=== PATIENT | male | born 1980 | race Caucasian/White ===

== ENCOUNTER 2017-10-28 15:58 | Emergency (ER) | payer BC ==
[~2017-10-28] VITALS: Ht 175.3 cm; Wt 90.9 kg
[~2017-10-28 15:58] MED LIST: ASPIRIN 81M81 MG/TA2 PO; no home medications
[2017-10-28 17:00] VITALS: BP 137/78; PULSE 57; TEMP 98.3
[2017-10-28 17:23] LABS: BASO % 0.8 % (0.0-2.0); EOS # 0.1 (0.0-0.7); EOS % 2.7 % (0-4.0); GRAN % 56.2 % (42.2-75.2); HEMATOCRIT 41.3 % (42.0-52.0); HEMOGLOBIN 14.6 g/dl (13.5-18.0); LYMPH # 1.7 (1.2-3.4); LYMPH % 32.3 % (20.0-51.0); MEAN CELL VOLUME 91 fl (80.0-100.0); MEAN CORPUSCULAR HEMOGLOBIN 32 pg (27.0-31.0); MEAN CORPUSCULAR HGB CONC 35 g/dl (33.0-37.0); MEAN PLATELET VOLUME 9.8 fl (7.4-10.4); MONO # 0.4 (0.1-0.6); MONO % 7.8 % (1.7-9.3); PLATELET COUNT 224 K/mm3 (130-400); RED BLOOD COUNT 4.56 M/mm3 (4.20-5.60); REDCELL DISTRIBUTION WIDTH-CV 11.9 % (11.5-14.5)
== END 2017-10-28 17:57 | disposition home or self-care (01) ==
LOC: COL.ER 15:58
PROVIDERS: Surgery
DX: R10.31 Right lower quadrant pain (principal); Z98.890 Other specified postprocedural states; Z79.82 Long term (current) use of aspirin

== ENCOUNTER 2017-12-17 13:02 | Inpatient (IN) | payer BC ==
[~2017-12-17] VITALS: Ht 177.8 cm; Wt 88.3 kg
[2017-12-17 13:51] VITALS: BP 131/92; PULSE 52; TEMP 97.8
[2017-12-17] MEDS ORDERED: CARDIZEM CD 12120 MG PO (14:19)
[2017-12-17] MEDS ORDERED: NITROSTAT0.4 MG/TAB (14:20)
[2017-12-17 15:49] VITALS: BP 135/89; PULSE 55; TEMP 98.2
[2017-12-17 19:49] VITALS: BP 131/86; PULSE 54; TEMP 98.6
[2017-12-17 22:16] LABS: TRICYCLIC ANTIDEPRESS URINE NEGATIVE
[2017-12-18] VITALS (9 sets, daily range): BP systolic 109–131; BP diastolic 52–88; PULSE 45–70; TEMP 98.4–98.6
[2017-12-18 06:40] LABS: BASO % 0.9 % (0.0-2.0); EOS # 0.1 (0.0-0.7); EOS % 2.3 % (0-4.0); GRAN # 2.5 (1.4-6.5); GRAN % 59.3 % (42.2-75.2); HEMATOCRIT 42.6 % (42.0-52.0); HEMOGLOBIN 14.6 g/dl (13.5-18.0); LYMPH # 1.3 (1.2-3.4); LYMPH % 29.4 % (20.0-51.0); MEAN CELL VOLUME 93 fl (80.0-100.0); MEAN CORPUSCULAR HEMOGLOBIN 32 pg (27.0-31.0); MEAN CORPUSCULAR HGB CONC 34 g/dl (33.0-37.0); MEAN PLATELET VOLUME 10.5 fl (7.4-10.4); MONO # 0.3 (0.1-0.6); MONO % 7.9 % (1.7-9.3); PLATELET COUNT 211 K/mm3 (130-400); RED BLOOD COUNT 4.56 M/mm3 (4.20-5.60); REDCELL DISTRIBUTION WIDTH-CV 12.6 % (11.5-14.5)
[2017-12-18 06:52] LABS: CALCIUM 8.4 mg/dL (8.4-10.2); CHOLESTEROL RISK RATIO 4.8; CREATININE, serum 0.77 mg/dL (0.66-1.25); POTASSIUM 3.9 mmol/L (3.4-5.0)
[2017-12-18 07:17] LABS: TSH w REFLEX 1.85 uIU/mL (0.465-4.680)
[2017-12-18 08:30] LABS: PROTHROMBIN TIME 11.8 SECONDS (9.7-12.8)
[2017-12-18] MEDS ORDERED: LIPITOR 40MG TA40 MG PO (14:39)
== END 2017-12-18 15:39 | disposition home or self-care (01) | DRG 287 ==
LOC: MEDICAL 13:02
PROVIDERS: Hospitalist; Internal Medicine Cardiovascular Disease; Physician Assistant
PROC: B2111ZZ Fluoroscopy of Multiple Coronary Arteries using Low Osmolar Contrast (ICD-10-PCS; principal; 2017-12-18)
PROC: B2151ZZ Fluoroscopy of Left Heart using Low Osmolar Contrast (ICD-10-PCS; 2017-12-18)
DX: R07.89 Other chest pain (principal); I50.32 Chronic diastolic (congestive) heart failure; I25.10 Atherosclerotic heart disease of native coronary artery without angina pectoris; I11.0 Hypertensive heart disease with heart failure; Z87.891 Personal history of nicotine dependence
CPT/HCPCS: 99223-AI; 99239; C1769; C1887; G0378; J1644; J2250; J3010; Q9967

== ENCOUNTER 2024-03-18 09:00 | Outpatient (RCR) | payer OTHER ==
[~2024-03-18 09:00] MED LIST changes: +CARDIZEM CD 12120 MG PO; +LIPITOR 40MG TA40 MG PO; +NITROSTAT0.4 MG/TAB
== END 2024-03-20 | disposition home or self-care (01) ==
LOC: WSPT
DX: M54.2 Cervicalgia (principal); M25.519 Pain in unspecified shoulder

== ENCOUNTER → 2024-04-01 | Outpatient (CLI) | payer SELFPAY | LOC: WSPT 09:52 | DX: M54.2 Cervicalgia (principal); M25.519 Pain in unspecified shoulder ==

== ENCOUNTER → 2024-04-15 | Outpatient (CLI) | payer SELFPAY | LOC: WSPT 10:54 | DX: M54.2 Cervicalgia (principal); M25.519 Pain in unspecified shoulder ==

== ENCOUNTER → 2024-04-22 | Outpatient (CLI) | payer SELFPAY | LOC: WSPT 10:03 | DX: M54.2 Cervicalgia (principal); M25.519 Pain in unspecified shoulder ==